=== PATIENT | female | born 2000 | race Caucasian/White ===

== ENCOUNTER 2024-02-26 16:18 | Emergency (ER) | payer OTHER ==
[2024-02-26 16:32] VITALS: TEMP 98.4
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
[2024-02-26 20:09] VITALS: BP 108/68; PULSE 54; RESP 16
== END 2024-02-26 20:09 | disposition home or self-care (01) ==
LOC: EC 16:18
DX: S16.1XXA Strain of muscle, fascia and tendon at neck level, initial encounter (principal); F17.290 Nicotine dependence, other tobacco product, uncomplicated; V89.2XXA Person injured in unspecified motor-vehicle accident, traffic, initial encounter; Y92.411 Interstate highway as the place of occurrence of the external cause
CPT/HCPCS: 70450; 72100; 72125; 99284